=== PATIENT | male | born 1970 | race African-American/Black ===

== ENCOUNTER 2022-06-09 06:24 | Emergency (ER) | payer OTHER ==
[2022-06-09 06:36] VITALS: BP 118/77; RESP 16; TEMP 99.1; BMI 30.9
[2022-06-09] MEDS ORDERED: ACETAMINOPHEN 500 MG TABLET (FP) PO ONE (07:26)
[2022-06-09] MEDS ORDERED: ACETAMINOPHEN 500 MG TABLET (FP) ONE (07:35)
[2022-06-09] MEDS ORDERED: AMOX TR/POT CLAV 875MG/125MG TABLETS (FP) PO ONE (07:42)
[2022-06-09 07:51] VITALS: PULSE 90
[2022-06-09] MEDS ORDERED: AMOX TR/POT CLAV 875MG/125MG TABLETS (FP) ONE (07:59)
== END 2022-06-09 08:05 | disposition home or self-care (01) ==
LOC: FER 06:24
DX: H60.92 Unspecified otitis externa, left ear (principal); J01.90 Acute sinusitis, unspecified
CPT/HCPCS: 0241U-QW; 99283-25

== ENCOUNTER 2022-08-23 23:23 | Emergency (ER) | payer OTHER ==
[2022-08-23 23:40] VITALS: BMI 29.5
[2022-08-23] MEDS ORDERED: SODIUM CHLORIDE 1,000 ML IV ONE ×2 (23:42)
[2022-08-23] MEDS ORDERED: PANTOPRAZOLE SODIUM 40 MG VIAL IVPUSH ONE (23:44)
[2022-08-23] MEDS ORDERED: PANTOPRAZOLE SODIUM 40 MG VIAL ONE (23:46)
[2022-08-24 00:54] LABS: HEMATOCRIT 41.3 % (35.4-49); HEMOGLOBIN 14.4 GM/dL (11.7-16.9); MCH 30.6 pg (25.7-33.7); MCHC 34.8 g/dl (32.0-35.9); MEAN CELL VOLUME 87.8 fl (80-96); PLATELET COUNT 213 10^3/uL (134-434); RDW 14.9 % (11.9-15.9); WHITE BLOOD COUNT 11.6 K/mm3 (4.0-10.0)
[2022-08-24 01:28] LABS: BLOOD UREA NITROGEN 14.5 mg/dL (7-18); MAGNESIUM 1.5 mg/dL (1.8-2.4)
[2022-08-24 01:30] LABS: CREATININE 0.9 mg/dL (0.55-1.3)
[2022-08-24 01:31] LABS: PHOSPHOROUS 4.3 mg/dL (2.5-4.9)
[2022-08-24 01:32] LABS: BILIRUBIN,TOTAL 0.6 mg/dL (0.2-1); TOT PROT 7.3 g/dl (6.4-8.2)
[2022-08-24] MEDS ORDERED: MAGNESIUM SULF 50% (8.12 MEQ/2 ML-1 GM VIAL) IVPB ONE (02:58)
[2022-08-24] MEDS ORDERED: MAGNESIUM SULFATE IN WATER 2 GM/50 ML IVPB IVPB ONE (03:20)
[2022-08-24] MEDS ORDERED: morphine SULFATE 4 MG/ML VIAL ONE (03:26)
[2022-08-24] MEDS ORDERED: morphine CARPU-JECT 2 MG/1 ML DISP.SYRIN IVPUSH ONE (03:29)
[2022-08-24 05:42] VITALS: TEMP 98.6
[2022-08-24] MEDS ORDERED: metroNIDAZOLE 500 MG TABLET PO ONE (09:17)
[2022-08-24] MEDS ORDERED: CIPROFLOXACIN 500 MG TABLET (RESTRICTED TO ID) PO ONE (09:17)
[2022-08-24] MEDS ORDERED: POTASSIUM CHLORIDE ORAL LIQUID 20 MEQ/15 ML PO ONE (09:17)
[2022-08-24] MEDS ORDERED: metroNIDAZOLE 250 MG TABLET ONE (09:20)
[2022-08-24] MEDS ORDERED: CIPROFLOXACIN 250 MG TABLET (RESTRICTED TO ID) PO ONE (09:21)
[2022-08-24] MEDS ORDERED: POTASSIUM CHLORIDE TABS 20 MEQ TABLET.ER (FP) PO ONE (09:21)
[2022-08-24 09:24] VITALS: BP 122/82; PULSE 84; RESP 16
== END 2022-08-24 09:55 | disposition home or self-care (01) ==
LOC: FER 23:23
PROC: 3E0333Z Introduction of Anti-inflammatory into Peripheral Vein, Percutaneous Approach (ICD-10-PCS; principal; 2022-08-23)
DX: K52.9 Noninfective gastroenteritis and colitis, unspecified (principal)
CPT/HCPCS: 0241U-QW; 36415; 74177-TC; 80053; 82550; 82553; 83605; 83735; 84100; 84484; 85027; 93005; 99284-25